=== PATIENT | female | born 1950 | race African-American/Black ===

== ENCOUNTER 2022-01-30 20:02 | Emergency (ER) | payer SELFPAY ==
[~2022-01-30] VITALS: Ht 172.7 cm; Wt 105.0 kg
[2022-01-30 20:06] VITALS: BP 134/83
== END 2022-01-30 22:42 | disposition left against medical advice (07) ==
LOC: ER 20:02
DX: Z53.21 Procedure and treatment not carried out due to patient leaving prior to being seen by health care provider (principal)
CPT/HCPCS: 82962